=== PATIENT | female | born 1940 | race Caucasian/White ===

== ENCOUNTER 2017-12-29 09:54 | Outpatient (CLI) | payer MEDICARE, OTHER, SELFPAY ==
[2017-12-29 09:54] VITALS: BMI 22.1
[2017-12-29 10:20] VITALS: BP 122/78; PULSE 68; RESP 20; TEMP 36.9; O2SAT 96
[2017-12-29 10:38] LABS: Calcium 9.9 mg/dL (8.5-10.1)
[2017-12-29 10:40] VITALS: BP 122/78; PULSE 68; RESP 20; TEMP 36.9; O2SAT 96
== END 2017-12-29 10:40 | disposition home or self-care (01) ==
LOC: INF 09:54
PROVIDERS: Family Provider Internal Medicine; PCP Internal Medicine; Visit Provider Internal Medicine
DX: M81.0 Age-related osteoporosis without current pathological fracture (principal); K21.9 Gastro-esophageal reflux disease without esophagitis
CPT/HCPCS: 36415; 82310; 96372; J0897

== ENCOUNTER → 2020-07-19 08:30 | Outpatient (CLI) | payer MEDICARE, OTHER, SELFPAY ==
[2020-07-20 13:53] LABS: Covid-19 Nasal PCR Sendout Lex Not Detected
== END ==
PROVIDERS: Visit Provider Dermatology
DX: Z03.818 Encounter for observation for suspected exposure to other biological agents ruled out (principal)
CPT/HCPCS: U0004

== ENCOUNTER → 2020-07-26 14:19 | Outpatient (CLI) | payer MEDICARE, OTHER, SELFPAY ==
[2020-07-28 14:28] LABS: Covid-19 Nasal PCR Sendout Lex NOT DETECTED
== END ==
PROVIDERS: Visit Provider Dermatology
DX: Z01.818 Encounter for other preprocedural examination (principal)
CPT/HCPCS: U0004

== ENCOUNTER → 2020-09-26 10:57 | Outpatient (CLI) | payer MEDICARE, OTHER, SELFPAY ==
[2020-09-27 11:38] LABS: Covid-19 Nasal PCR Sendout P&C NEGATIVE
== END ==
PROVIDERS: Visit Provider Dermatology
DX: Z11.52 Encounter for screening for COVID-19 (principal)
CPT/HCPCS: U0004

== ENCOUNTER 2020-10-08 09:30 | Emergency (ER) | payer MEDICARE, OTHER, SELFPAY ==
[2020-10-08 09:31] VITALS: BP 187/108; PULSE 130; RESP 16; TEMP 36.8; O2SAT 97; BMI 21.2
--- NOTE | 2020-10-08 09:43 | ECG_ITS ---
APPROVED REPORT Exam: Resting ECG HR:162 bpm ECG Measurements Heart Rate 162 AXES LA 124 P 50 QRSd 72 QRS -1 QT 302 T 31 QTc 495 Conclusion Undetermined rhythm Septal infarct, age undetermined Lateral infarct, age undetermined ST & T wave abnormality, consider inferior ischemia Abnormal ECG Electronically signed by : Will Sanchez, 10/09/2020 07:09:24
--- NOTE | 2020-10-08 09:51 | XR_ITS ---
PROCEDURE: XR CHEST PORTABLE CLINICAL HISTORY: chest pain COMPARISON: No exams were available for comparison FINDINGS: The cardiomediastinal silhouette and pulmonary vascularity are within normal limits. The lungs are clear without infiltrates, suspicious nodules, or pleural effusions. There are surgical clips in the left axilla IMPRESSION: No acute findings. Dictated by: Regan Lancaster MD 10/08/2020 10:36 Regan Lancaster MD in [place] 10/08/2020 10:36
[2020-10-08 10:01] VITALS: BP 135/87; PULSE 106; O2SAT 98
--- NOTE | 2020-10-08 10:07 | HMH.EDARPALP ---
ED Disposition Clinical Impression: Palpitations Pulmonary contusion Qualifiers: Encounter type: initial encounter Laterality: unspecified laterality Qualified Code(s): S27.329A - Contusion of lung, unspecified, initial encounter Disposition: Home, Self-Care Condition on Discharge: Good Instructions: DI for Palpitations Referrals: Zo Higgins [Primary Care Provider] - Darren Pedroza MD [Staff Physician] - - Critical Care Critical Care Time: No Attestation: On 10/08/20, the high probability of a clinically significant, sudden or life threatening deterioration of the following system(s) required my full and direct attention, intervention and personal management. The time I documented below is in addition to time spent performing reported procedures but includes the following listed in this critical care notation. Medical Decision Making - Medical Records Medical records reviewed: Yes: I reviewed the patient's medical records. - Kirt Inquiry Pt receiving controlled substance: No Vital Signs: 10/08/20 09:31 Temperature 98.3 F Temperature Source Oral Pulse Rate [Right Brachial] 130 H Respiratory Rate 16 Blood Pressure [Right Arm] 187/108 H Blood Pressure Mean [Right Arm] 134 Blood Pressure Source [Right Arm] Automatic Cuff Blood Pressure Position [Right Arm] Sitting 02 Sat by Pulse Oximetry 97 Oxygen Delivery Method Room Air - Lab Data Lab Results 10/08/20 11:10: WBC 6.5, RBC 4.72, Hgb 13.5, Hct 40.7, MCV 86.1, MCH 28.5, MCHC 33.1, RDW 15.1, Plt Count 195, MPV 7.6, Neut % (Auto) 79.7, Lymph % (Auto) 12.7, [place] % (Auto) 4.9, Eos % (Auto) 2.2, Baso % (Auto) 0.5, Neut # (Auto) 5.2, Lymph # (Auto) 0.8, [place] # (Auto) 0.3, Eos # (Auto) 0.1, Baso # (Auto) 0.0 10/08/20 11:10: Sodium 140, Potassium 4.1, Chloride 105, Carbon Dioxide 27, Anion Gap 12.1, BUN 17, Creatinine 1.10 H, Estimated Creat Clear 34, Estimated GFR 48 L, Est GFR ( Amer) 58 L, Glucose 90, Calcium 10.1, Troponin I < 0.01 10/08/20 11:10: SARS-CoV-2 IgG Ab (Rapid) Negative, SARS-CoV-2 IgM Ab (Rapid) Negative 10/08/20 11:10: APTT 23.1 L 10/08/20 11:10: NT-Pro-B Natriuret Pep 117, TSH 3.15 10/08/20 11:10: PT 11.4, INR 1.03 Result diagrams: 10/08/20 11:10 10/08/20 11:10 Orders (Tests/Meds): ED MEDICATIONS Discontinued Medications Generic Name Dose Route Start Last Admin Trade Name Freq PRN Reason Stop Dose Admin Sodium Chloride 1,000 mls @ 999 mls/hr 10/08/20 10:15 10/08/20 11:25 Sod Chlor 0.9% 1000ml Bag IV 10/08/20 11:15 999 mls/hr .Q1H1M AZRA Administration Iopamidol 70 ml 10/08/20 12:16 10/08/20 12:17 Iopamidol-370 (76%);100ml Bottle IV 10/08/20 12:17 70 ml ONCE ONE Administration Sodium Chloride 10 ml 10/08/20 12:16 10/08/20 12:17 Sodium Chloride 0.9% 10ml Syr (Rad Only) IV 10/08/20 12:17 10 ml ONCE ONE Administration Sodium Chloride 50 ml 10/08/20 12:16 10/08/20 12:17 0.9 % Sodium Chloride 50 Ml Vial IV 10/08/20 12:17 50 ml ONCE ONE Administration ORDERS Category Date Time Status Troponin I Q3H Lab 10/08/20 13:00 Ordered Troponin I Q3H Lab 10/08/20 16:00 Ordered ECG Request by /Nse Stat Y 10/08/20 09:51 Ordered - Radiology Data #1 Image(s): Chest Image Reviewed: Yes I reviewed the patient's radiology results, Yes I reviewed the patient's radiology image, Yes I reviewed the patient's radiology image w/the ED provider Preliminary Findings: Normal/NAD, No Fracture Seen - CT Data CT Scan: Chest Time Received: 13:[address] Reviewed: Yes: I have reviewed the patient's CT results, I have viewed the radiologist's interpretation Findings Narrative: IMPRESSION: 1. No evidence of pulmonary embolus. 2. Mild mediastinal and axillary adenopathy. Small nodes are also present in the retrocrural region. - ECG Data Tracing #1 Tachycardic rate of 160 bpm, normal AL interval, normal QTC. Sinus tachycardia with nonspecific changes. ECG
--- NOTE | 2020-10-08 10:32 | PC.NURSE ---
Multiple attempts to place IV, unsuccessful.
--- NOTE | 2020-10-08 10:48 | PC.NURSE ---
lab notified of need for blood draw
--- NOTE | 2020-10-08 10:52 | CT_ITS ---
PROCEDURE: CT ANGIO CHEST CLINCIAL INDICATION: palpitations, chest pain Recent chest injury with pain COMPARISON: No exams were available for comparison TECHNIQUE: IV Contrast: 70ML Isovue 370 Axial images obtained with sagittal and coronal reformats. All CT scans at the facility use one or more dose reduction, viz: automated exposure control, ma/kV adjustment per patient size (including targeted exams where dose is matched to indication, i.e. head), or iterative reconstruction technique. FINDINGS: HEART AND MEDIASTINAL STRUCTURES: No evidence of pulmonary embolus, aortic aneurysm, or aortic dissection. There is some tortuosity an ectasia of the thoracic aorta with atheromatous changes. There are few scattered small mediastinal nodes. LUNGS AND PLEURAL SPACES: Mild atelectatic or fibrotic changes are present in the left lower lobe. No lobar consolidation or collapse is evident. There is some mild pleural thickening along the medial aspect of the left lower lobe adjacent to the descending thoracic aorta nonspecific. BONY STRUCTURES: No acute bony findings. Specifically, no evidence of sternal fracture. UPPER ABDOMEN: There is a medium-sized hiatal hernia. Few small lymph nodes are present in the periaortic region in the retrocrural area. The there is a 3 cm right renal cyst ADDITIONAL FINDINGS: Mildly prominent axillary nodes and left infraclavicular nodes present. IMPRESSION: 1. No evidence of pulmonary embolus. 2. Mild mediastinal and axillary adenopathy. Small nodes are also present in the retrocrural region. Dictated by: Regan Lancaster MD 10/08/2020 12:43 Regan Lancaster MD in [place] 10/08/2020 12:43
--- NOTE | 2020-10-08 10:54 | PC.NURSE ---
Multiple attempts at IV unsuccessful. Blood work delayed. Contacting [facility] for US guided IV at this time
--- NOTE | 2020-10-08 11:00 | PC.NURSE ---
[facility] RN here to place IV using ultrasound
[2020-10-08 11:01] VITALS: BP 133/82; PULSE 116; O2SAT 98
[2020-10-08 11:36] LABS: Chloride 105 mmol/L (98-107)
[2020-10-08 11:37] LABS: Potassium 4.1 mmoL/L (3.5-5.1); Sodium 140 mmol/L (136-145)
[2020-10-08 11:39] LABS: Blood Urea Nitrogen 17 mg/dl (7-17); Creatinine Clearance Estimated 34 mL/min (50-200); Estimated Glomerular Filt Rate 48 ml/min (>60); GFR (African American) 58 ML/MIN (>60)
[2020-10-08 11:40] LABS: Anion Gap 12.1 mEq/L (5-15); Basophils % 0.5 % (0.1-2.0); Calcium 10.1 mg/dl (8.4-10.2); Carbon Dioxide 27 mmol/L (22.0-30.0); Eosinophils # 0.1 K/mm3 (0.0-0.4); Eosinophils % 2.2 % (0.1-12.0); Glucose 90 mg/dl (74-100); Hematocrit 40.7 % (37.0-47.0); Hemoglobin 13.5 g/dL (12.2-16.2); Lymphocytes # 0.8 K/mm3 (0.7-4.5); Lymphocytes % 12.7 % (10-50); Mean Corpuscular HGB Conc 33.1 g/dL (31.8-35.4); Mean Corpuscular Hemoglobin 28.5 pg (27.0-31.2); Mean Corpuscular Volume 86.1 fl (81-99); Mean Platelet Volume 7.6 fl (7.4-10.4); Monocytes # 0.3 K/mm3 (0.1-1.0); Monocytes % 4.9 % (1.7-9.3); Neutrophils # 5.2 K/mm3 (1.8-7.8); Neutrophils % 79.7 % (37.0-80.0); Platelet Count 195 K/mm3 (142-424); Red Blood Count 4.72 M/mm3 (4.20-5.40); Red Cell Distribution Width 15.1 % (11.5-17.5); White Blood Count 6.5 K/mm3 (4.8-10.8)
[2020-10-08 11:50] LABS: Activated Partial Thrombo Time 23.1 seconds (23.6-34.0); INR 1.03 (0.9-1.1); NT Pro Brain Natriuretic Pep. 117 pg/mL (0-450); Prothrombin Time 11.4 seconds (9.4-11.8)
[2020-10-08 11:54] LABS: Troponin I < 0.01 ng/ml (0.00-0.034)
[2020-10-08 12:01] VITALS: BP 139/79; PULSE 102; O2SAT 96
[2020-10-08 12:11] LABS: Thyroid Stimulating Hormone 3.15 uIU/mL (0.465-4.68)
[2020-10-08 12:40] LABS: Coronavirus 19 IgG Antibody Negative (Negative); Coronavirus 19 IgM Antibody Negative (Negative)
[2020-10-08 13:01] VITALS: BP 142/71; PULSE 91; O2SAT 98
[2020-10-08 13:24] VITALS: BP 141/74; PULSE 85; RESP 16; TEMP 36.8; O2SAT 98
[2020-10-08 14:20] LABS: Troponin I < 0.01 ng/ml (0.00-0.034)
== END 2020-10-08 13:29 | disposition home or self-care (01) ==
PROVIDERS: Emergency Provider Emergency Medicine; PCP Internal Medicine
DX: S27.329A Contusion of lung, unspecified, initial encounter (principal); W01.0XXA Fall on same level from slipping, tripping and stumbling without subsequent striking against object, initial encounter; Y92.019 Unspecified place in single-family (private) house as the place of occurrence of the external cause; R00.2 Palpitations; R06.02 Shortness of breath; Z01.84 Encounter for antibody response examination
CPT/HCPCS: 36415; 71045; 71275; 80048; 83880; 84443; 84484; 85025; 85610; 85730; 86328; 93005; 96365; 99283; Q9967

== ENCOUNTER → 2020-10-16 11:56 | Outpatient (CLI) | payer MEDICARE, OTHER, SELFPAY | PROVIDERS: PCP Internal Medicine; Visit Provider Urology | DX: R00.2 Palpitations (principal) | CPT/HCPCS: 93270 ==

== ENCOUNTER → 2020-10-19 09:08 | Outpatient (CLI) | payer MEDICARE, OTHER, SELFPAY ==
--- NOTE | 2020-10-19 09:10 | CA_ITS ---
APPROVED REPORT EXAM: Comprehensive 2D, Doppler, and color-flow Echocardiogram [employer]: Leonora Schilling RT(R) Ht: 5 ft 3 in Wt: 120lbs BSA: 1.56 BP: 154/101 mmHg Indications: Palpitations, HTN 2D Dimensions LVOT 1.75 cm (M/F) 1.5-2.5 M-Mode Dimensions RVDd 2.84 cm (0.9-2.6) LA Diam 2.76 cm (1.9-4.0) LVDd 3.53 cm (3.5-5.7) Ao Diam 2.17 cm (2.0-3.7) LVDs 2.34 cm (3.5-5.7) IVSd 0.91 cm (0.6-1.1) PWd 0.81 cm (0.6-1.1) EF (Teich) 63.60% FS 33.70% EDV (Teich) 51.90 mL ESV (Teich) 18.90 mL LV Diastology E Decel Time 257.00 (160-240 msec) E/A Ratio 0.9 MED E' 4.40 (< 7 cm/sec) E'/MED E' Ratio 20.59 (>14) LAT E' 8.00 (<10 cm/sec) E/LAT E' Ratio 11.33 (>14) Mitral Valve MV E Max Hema. 91.00 (40-130 cm/s) MV A Velocity 107.00 (40-130 cm/s) E/A Ratio 0.84 MV Decel. Time 257.00 (160-240 ms) MV PHT 75.00 ms Tricuspid Valve TR P. Velocity 200.00 cm/s RAP Estimate 10.00 mmHg RVSP 25.90 mmHg Left Ventricle Mildly enlarged left atrium, normal left ventricular size, mild concentric left ventricular hypertrophy, visually estimated ejection fraction 55% with no regional wall motion abnormality, grade 1 diastolic dysfunction seen without tissue Doppler evidence of raise left atrial pressure. Right Ventricle Right atrium and right ventricle are normal size and contractility. Aortic Valve Aortic valve is minimally thickened and fibrosed, there is no aortic stenosis or aortic insufficiency. Mitral Valve Mitral valve is grossly normal, there is mild mitral regurgitation. Tricuspid Valve Tricuspid valve is grossly normal, there is mild tricuspid regurgitation, tricuspid regurgitation jet velocity is inadequate for calculation of the right ventricular systolic pressure. Pulmonic Valve Pulmonic valve is poorly visualized. Great Vessels Aortic root is normal size. Pericardium No significant pericardial effusion noted. Conclusion 1. Mildly enlarged left atrium, normal left ventricular size, mild concentric left ventricular hypertrophy, visually estimated ejection fraction 55% with no regional wall motion abnormality, grade 1 diastolic dysfunction seen without tissue Doppler evidence of raise left atrial pressure. 2. Mild mitral and tricuspid regurgitation. 3. No significant pericardial effusion noted. Electronically signed by : Sha Reyes, 10/19/2020 14:44:56
== END ==
PROVIDERS: PCP Internal Medicine; Visit Provider Urology
DX: R00.2 Palpitations (principal)
CPT/HCPCS: 93306

== ENCOUNTER → 2022-01-08 09:05 | Outpatient (CLI) | payer MEDICARE, OTHER, SELFPAY ==
[2022-01-08 10:01] LABS: Basophils % 0.8 % (0.1-2.0); Eosinophils # 0.7 K/mm3 (0.0-0.4); Eosinophils % 13.4 % (0.1-12.0); Hemoglobin 12.8 g/dL (12.2-16.2); Lymphocytes # 1.2 K/mm3 (0.7-4.5); Mean Corpuscular HGB Conc 31.4 g/dL (31.8-35.4); Mean Corpuscular Hemoglobin 27.6 pg (27.0-31.2); Mean Platelet Volume 7.7 fl (7.4-10.4); Monocytes # 0.3 K/mm3 (0.1-1.0); Monocytes % 5.1 % (1.7-9.3); Neutrophils # 3.3 K/mm3 (1.8-7.8); Neutrophils % 59.7 % (37.0-80.0); Platelet Count 200 K/mm3 (142-424); Red Blood Count 4.65 M/mm3 (4.20-5.40); Red Cell Distribution Width 13.8 % (11.5-17.5); White Blood Count 5.5 K/mm3 (4.8-10.8)
[2022-01-08 10:45] LABS: Alanine Aminotransferase 19 U/L (12-78); Albumin Level 4.3 g/dl (3.5-5.0); Albumin/Globulin Ratio 1.3 (1.1-1.8); Alkaline Phosphatase 99 U/L (38-126); Anion Gap 10.1 mEq/L (5-15); Aspartate Amino Transferase 26 U/L (14-36); Bilirubin,Total 0.6 mg/dl (0.2-1.3); Blood Urea Nitrogen 12 mg/dl (7-17); Calcium 9.6 mg/dl (8.4-10.2); Carbon Dioxide 27 mmol/L (22.0-30.0); Chloride 106 mmol/L (98-107); Chol/HDL Ratio 5.5 (1-3.5); Cholesterol 155 mg/dl (140-200); Estimated Glomerular Filt Rate 69 ml/min (>60); GFR (African American) 83 ML/MIN (>60); Globulin 3.3 g/dL (1.3-3.2); Glucose 86 mg/dl (74-100); HDL Cholesterol 28 mg/dl (40-60); Magnesium 1.3 mg/dl (1.6-2.3); Potassium 4.1 mmoL/L (3.5-5.1); Sodium 139 mmol/L (136-145); Total Protein,Serum 7.6 g/dl (6.3-8.2); Triglycerides 141 mg/dl (30-150); VLDL Cholesterol 28 mg/dL (0-40)
[2022-01-08 10:47] LABS: Alanine Aminotransferase 16 U/L (12-78); Albumin Level 3.8 g/dl (3.5-5.0); Alkaline Phosphatase 87 U/L (38-126); Aspartate Amino Transferase 22 U/L (14-36); Bilirubin,Direct 0.2 mg/dl (0.0-0.4); Bilirubin,Indirect 0.3 mg/dL (0.0-0.9); Bilirubin,Total 0.5 mg/dl (0.2-1.3); Bilirubin,Unconjugated 0.3 mg/dL (0.0-1.1); Total Protein,Serum 6.8 g/dl (6.3-8.2)
[2022-01-08 10:57] LABS: Direct LDL Cholesterol 87.76 mg/dL (100-129)
[2022-01-08 11:00] LABS: Free T4 (Free Thyroxine) 0.98 ng/dl (0.78-2.19)
[2022-01-08 11:04] LABS: 25-OH Vitamin D, Total 34.4 ng/mL (30-100)
[2022-01-08 11:52] LABS: Vitamin B12 599 pg/mL (239-931)
[2022-01-08 13:46] LABS: Thyroid Stimulating Hormone 2.71 uIU/mL (0.465-4.68)
== END ==
PROVIDERS: Physician Assistant; PCP Internal Medicine; Visit Provider Internal Medicine
DX: I10 Essential (primary) hypertension (principal); E78.00 Pure hypercholesterolemia, unspecified; E55.9 Vitamin D deficiency, unspecified; E53.8 Deficiency of other specified B group vitamins
CPT/HCPCS: 36415; 80053; 80061; 80076; 82306; 82607; 82746; 83735; 84439; 84443; 85025

== ENCOUNTER → 2022-01-10 12:47 | Outpatient (CLI) | payer MEDICARE, OTHER, SELFPAY ==
--- NOTE | 2022-01-10 12:50 | CA_ITS ---
FINAL REPORT TECHNIQUE: Color Doppler, duplex Doppler and so scale sonography of the bilateral neck arterial vasculature was performed. Velocities were measured in the carotid arteries. Stenosis evaluation based on the validated velocity criteria. CLINICAL HISTORY: dizziness FINDINGS: The peak systolic velocity of the right common carotid artery is 72 cm/s. The peak systolic velocity of the right internal carotid artery is 65 cm/s and end diastolic velocity 13 cm/s. The ICA/CCA ratio is 0.9. A mild amount of plaque is present. The right external carotid artery is patent. The right vertebral artery is patent with antegrade flow. The peak systolic velocity of the left common carotid artery is 58 cm/s. The peak systolic velocity of the left internal carotid artery is 60 cm/s and end diastolic velocity 22 cm/s. The ICA/CCA ratio is 1.2. A mild amount of plaque is present. The left external carotid artery is patent.The left vertebral artery is patent with antegrade flow. IMPRESSION: Less than 50% bilateral carotid stenosis. Bilateral patent vertebral arteries with antegrade flow. Reviewed, Interpreted and Dictated by Jayme Lacey MD Transcribed by Tammy Valenzuela Authenticated by Jayme Lacey MD on 01/10/2022 03:05:[address] [facility]
== END ==
PROVIDERS: PCP Internal Medicine; Visit Provider Physician Assistant
DX: I10 Essential (primary) hypertension (principal); R00.2 Palpitations; R42 Dizziness and giddiness
CPT/HCPCS: 93880

== ENCOUNTER 2024-01-25 09:12 | Outpatient (CLI) | payer MEDICARE, OTHER, SELFPAY | END 2024-01-25 23:59 | disposition home or self-care (01) | LOC: RT 09:12 | PROVIDERS: PCP Internal Medicine; Visit Provider Nurse Practitioner | DX: R00.2 Palpitations (principal); R60.9 Edema, unspecified; I49.3 Ventricular premature depolarization; E78.5 Hyperlipidemia, unspecified; I10 Essential (primary) hypertension; Z87.891 Personal history of nicotine dependence | CPT/HCPCS: 93270 ==

== ENCOUNTER 2024-02-02 10:08 | Outpatient (CLI) | payer MEDICARE, OTHER, SELFPAY ==
--- NOTE | 2024-02-02 10:08 | CA_ITS ---
APPROVED REPORT EXAM: Comprehensive 2D, Doppler, and color-flow Echocardiogram [employer]: Danelle Espinoza CRT Ht: 5 ft 3 in Wt: 114lbs BSA: 1.52 BP: 116/71 mmHg Indications: Palpitations, Hyperlipidemia, Hypertension/HDD 2D Dimensions LA Volume 31.60 mL LA Volume Index 20.79 mL/m2 (M/F) 16-34 M-Mode Dimensions RVDd 2.86 cm (0.9-2.6) LA Diam 3.32 cm (1.9-4.0) LVDd 2.95 cm (3.5-5.7) LVDs 1.83 cm (3.5-5.7) IVSd 1.90 cm (0.6-1.1) PWd 0.56 cm (0.6-1.1) EF (Teich) 69.90% FS 38.00% EDV (Teich) 33.60 mL TAPSE 1.87 (<1.7) ESV (Teich) 10.10 mL LV Diastology E Decel Time 308 (160-240 msec) E/A Ratio 0.7 MED A' 12.60 cm/s LAT A' 13.20 cm/s Aortic Valve AO Peak GR. 11.40 mmHg Mitral Valve MV E Max Hema. 85.0 (40-130 cm/s) MV A Velocity 118.0 (40-130 cm/s) E/A Ratio 0.72 MV PHT 90.0 ms Pulmonary Valve PV Peak Velocity 163.0 (50-150 cm/s) Tricuspid Valve TR P. Velocity 290.00 cm/s RAP Estimate 10.00 mmHg RVSP 43.50 mmHg Left Ventricle The left ventricle is normal size. The left ventricular systolic function is normal. The left ventricular ejection fraction is within the normal range. There is increased LV wall thickness. There is normal LV segmental wall motion. Diastolic function is indeterminate. LVEF is 60%. Right Ventricle The right ventricle is normal size. The right ventricular systolic function is normal. Atria Left atrium is mildly dilated. Right atrium is mildly dilated. There is no Doppler evidence of interatrial shunt. Aortic Valve The aortic valve is mildly thickened. There is no aortic valvular stenosis. Trace aortic regurgitation. Mitral Valve The mitral valve leaflets are mildly thickened. No evidence of mitral valve stenosis. Trace mitral regurgitation. Tricuspid Valve The tricuspid valve leaflets are thin and pliable. Mild tricuspid regurgitation. RVSP is 25-30 mmHg. Pulmonic Valve The pulmonary valve is normal in structure. Trace pulmonic regurgitation. Great Vessels The aortic root is normal in size. The ascending aorta is not well-visualized. IVC is normal in size and collapses >50% with inspiration. Pericardium There is no pericardial effusion. Other Information Study Quality: Fair Conclusion Normal biventricular systolic function. Mild biatrial dilation. Mild TR. RVSP 25-30 mmHg. Electronically signed by : Solange Eric MD 02/02/2024 13:49:30
== END 2024-02-02 23:59 | disposition home or self-care (01) ==
LOC: RT 10:08
PROVIDERS: PCP Internal Medicine; Visit Provider Nurse Practitioner
DX: E78.5 Hyperlipidemia, unspecified (principal); I49.3 Ventricular premature depolarization; R00.2 Palpitations; I10 Essential (primary) hypertension; Z87.891 Personal history of nicotine dependence
CPT/HCPCS: 93306

== ENCOUNTER 2024-03-21 17:02 | Emergency (ER) | payer MEDICARE, OTHER, SELFPAY ==
[2024-03-21 17:03] VITALS: BP 145/87; PULSE 88; RESP 16; TEMP 36.7; O2SAT 95; BMI 20.2
[2024-03-21 17:31] VITALS: BP 145/87; PULSE 89; O2SAT 97
--- NOTE | 2024-03-21 17:45 | ED_ITS ---
<Statement entered by Pradeep Manuel MD - 03/21/24 18:53> I was consulted by the PENNY, and we discussed the complexity of the problems being addressed. I approved the treatment and management plan for this patient's care in the emergency department, thus performing a substantive portion of the medical decision making. Pradeep Manuel MD Discharge Plan Disposition Patient Disposition: Home, Self-Care Condition: Good Prescriptions Prescriptions: New doxycycline hyclate 100 mg capsule 100 mg PO BID 10 Days Qty: 20 0RF No Action cholecalciferol (vitamin D3) 1,250 mcg (50,000 unit) capsule 1,250 mcg PO WEEKLY Patient Comments: TAKE 1 CAPSULE BY MOUTH ONCE A WEEK cyanocobalamin (vitamin B-12) 1,000 mcg/mL solution 1,000 mcg SQ Q2W metoprolol succinate [Toprol XL] 25 mg tablet extended release 24 hr 25 mg PO DAILY Qty: 90 3RF aspirin [Adult Low Dose Aspirin] 81 mg tablet,delayed release (DR/EC) 81 mg PO DAILY omeprazole 20 mg capsule,delayed release(DR/EC) 20 mg PO DAILY magnesium 200 mg tablet 200 mg PO BID vitamin B complex [B Complex-Vitamin B12] Tablet 1 tab PO DAILY amlodipine 5 MG tablet 5 mg PO DAILY spironolactone 50 MG tablet 50 mg PO DAILY Referrals Follow up/Referrals: Zo Higgins MD [Primary Care Provider] - See instructions Activity Restrictions/Add. Instructions Additional Instructions/Restrictions: Follow-up with your PCP within 48 hours. Return to ER for worsening signs or symptoms. Clinical Impressions Clinical Impression: Ascending lymphangitis Instructions Patient Instructions: DI for Cellulitis -- Adult Discharge ED Provider: Pradeep Manuel General Adult HPI General Chief complaint: Extremity Problem,Nontraumatic Stated complaint: possible insect bite on right leg Time Seen by Provider: 03/21/24 17:32 Mode of Arrival: Ambulatory Source of Information: Patient Limitations: No Limitations Description of Symptoms (Recalled from ER Triage Doc. by RN): Patient reports being bit by some type of insect causing redness and swelling in her right lower leg. States this happened last night. History of Present Illness HPI narrative: Patient presents for evaluation of redness pain and swelling of her right lower extremity. Patient believes she was bit by a chigger last evening. She reports it is very itchy however she noticed redness starting to spread up her leg from it. She denies fever chest pain shortness of breath chills hemoptysis hematochezia melena nausea vomit diarrhea. Related Data Home Medications Medication Instructions Recorded Confirmed amlodipine 5 mg tablet 5 mg PO DAILY HTN 10/08/20 02/29/24 spironolactone 50 mg tablet 50 mg PO DAILY Fluid 10/08/20 02/29/24 aspirin 81 mg tablet,delayed 81 mg PO DAILY 10/16/20 02/29/24 release (Adult Low Dose Aspirin) omeprazole 20 mg capsule,delayed 20 mg PO DAILY 11/13/20 02/29/24 release vitamin B complex (B 1 tab PO DAILY 08/21/21 02/29/24 Complex-Vitamin B12 tablet) cholecalciferol (vitamin D3) 1,250 1,250 mcg PO WEEKLY 07/09/22 02/29/24 mcg (50,000 unit) capsule cyanocobalamin (vitamin B-12) 1,000 mcg SQ Q2W 01/08/23 02/29/24 1,000 mcg/mL injection solution magnesium 200 mg tablet 200 mg PO BID 01/08/23 02/29/24 Previous Rx's Medication Instructions Recorded metoprolol succinate 25 mg 25 mg PO DAILY #90 tabs 02/29/24 tablet,extended release 24 hr (Toprol XL) doxycycline hyclate 100 mg capsule 100 mg PO BID 10 days #20 caps 03/21/24 Allergies Allergy/AdvReac Type Severity Reaction Status Date / Time Sulfa (Sulfonamide Allergy Intermediate RASH, Verified 02/29/24 13:44 Antibiotics) ITCHING codeine AdvReac Severe SEVERE Verified 02/29/24 13:44 VOMITING [facility] Disclaimer: The information contained in this section may have been updated after the patient was seen, as this information can be updated by other users. Medical History Encounter for pre-operative cardiovascular clearance Social History Smoking Status: Unknown if ever smoked alcohol intake: never current occupational status: retired Travel in the last 8 weeks: Inside the [facility] housing: house ROS Obtained: Yes Systems reviewed as appropriate & no additional complaints except as documented Physical Exam General General appearance: alert and in no apparent distress Respiratory Respiratory exam: Present normal lung sounds bilaterally Cardiovascular Cardiovascular exam: Present regular rate and normal rhythm Neurological Exam Neurological exam: Present alert and oriented X3 Expanded Skin Exam Body image: 2 1. Meningitis 2. Bug bite 3. Lymphangitis Medical Decision Making Medical Records Medical records reviewed: Yes I reviewed the patient's medical records. Kirt Inquiry Pt receiving controlled substance: No Vital Signs: 03/21/24 17:03 03/21/24 17:31 03/21/24 18:00 Temperature 98.0 F Temperature Source Oral Pulse Rate 89 80 Pulse Rate [Radial] 88 Respiratory Rate 16 Blood Pressure 145/87 H 173/89 H Blood Pressure [Right Arm] 145/87 H Blood Pressure Mean 104 Blood Pressure Mean [Right Arm] 106 Blood Pressure Source [Right Arm] Automatic Cuff Blood Pressure Position [Right Arm] Sitting 02 Sat by Pulse Oximetry 95 97 96 Oxygen Delivery Method Room Air Room Air Room Air Lab Data Lab results reviewed: Yes I reviewed the patient's lab results. Lab Results 03/21/24 17:50: WBC 5.1, RBC 4.35, Hgb 12.8, Hct 38.4, MCV 88.4, MCH 29.5, MCHC 33.4, RDW 15.6, Plt Count 152, MPV 8.6, Neut % (Auto) 70.3, Lymph % (Auto) 18.8, [place] % (Auto) 5.6, Eos % (Auto) 4.7, Baso % (Auto) 0.6, Neut # (Auto) 3.6, Lymph # (Auto) 1.0, [place] # (Auto) 0.3, Eos # (Auto) 0.2, Baso # (Auto) 0.0, Sodium 138, Potassium 4.7, Chloride 109 H, Carbon Dioxide 23, Anion Gap 10.7, BUN 17, Creatinine 0.90, Estimated Creat Clear 34, Estimated GFR 60, Est GFR ( Amer) 72, Glucose 89, Calcium 9.6 03/21/24 17:50 03/21/24 17:50 Orders (Tests/Meds): ED MEDICATIONS Discontinued Medications Generic Name Dose Route Start Last Admin Trade Name Freq PRN Reason Stop Dose Admin Acetaminophen 1,000 mg 03/21/24 17:38 03/21/24 17:55 Acetaminophen 1,000mg/100ml Vial IV 03/21/24 17:39 1,000 mg ONCE ONE Administration Dexamethasone Sodium Phosphate 10 mg 03/21/24 17:38 03/21/24 17:57 Dexamethasone 4mg/Ml 5ml Mdv IV 03/21/24 17:39 10 mg ONCE ONE Administration Diphenhydramine HCl 50 mg 03/21/24 17:38 03/21/24 17:55 Diphenhydramine 50mg/Ml Vial IV 03/21/24 17:39 50 mg ONCE ONE Administration Doxycycline Hyclate 100 mg 03/21/24 17:51 03/21/24 18:14 Doxycycline Hycl 100 Mg Tablet PO 03/21/24 17:52 100 mg ONCE ONE Administration ORDERS Category Date Time Status BMP [Basic Metabolic Panel] Stat Lab 03/21/24 17:50 Completed CBC w/Auto Diff [Complete Blood Count Auto Diff] Stat Lab 03/21/24 17:50 Completed Medical Decision Narrative: In summary patient is a 83-year-old female who presents to the emergency department for evaluation of bug bite and redness. Patient is hemodynamically stable upon arrival, afebrile. Physical exam is remarkable for an area in the popliteal fossa that is excoriated with a good scab over it slightly raised but no fluctuance with spreading erythema tracking up her anterior leg along the lymph channels. Differential diagnosis includes pharyngitis versus cellulitis versus abscess etc. Initial workup will be conducted with hematologic labs. Initial interventions include doxycycline Benadryl Decadron. Initial workup reviewed by oh hematologic labs are nonactionable. Upon repeat evaluation had no spread after administration of initial medication. Given this patient is appropriate for discharge with prescription sent in for doxycycline prednisone Critical Care Critical Care Time Critical Care Time: No
[2024-03-21] MEDS: ACETAMINOPHEN 1,000MG/100ML VIAL 1000 MG IV (17:55)
[2024-03-21] MEDS: diphenhydrAMINE 50MG/ML VIAL 50 MG IV (17:55)
[2024-03-21] MEDS: DEXAMETHASONE 4MG/ML 5ML MDV 10 MG IV (17:57)
[2024-03-21 18:00] VITALS: BP 173/89; PULSE 80; O2SAT 96
[2024-03-21 18:06] LABS: Basophils % 0.6 % (0.1-2.0); Eosinophils # 0.2 K/mm3 (0.0-0.4); Eosinophils % 4.7 % (0.1-12.0); Hematocrit 38.4 % (37.0-47.0); Hemoglobin 12.8 g/dL (12.2-16.2); Lymphocytes % 18.8 % (10-50); Mean Corpuscular HGB Conc 33.4 g/dL (31.8-35.4); Mean Corpuscular Hemoglobin 29.5 pg (27.0-31.2); Mean Corpuscular Volume 88.4 fl (81-99); Mean Platelet Volume 8.6 fl (7.4-10.4); Monocytes # 0.3 K/mm3 (0.1-1.0); Monocytes % 5.6 % (1.7-9.3); Neutrophils # 3.6 K/mm3 (1.8-7.8); Neutrophils % 70.3 % (37.0-80.0); Platelet Count 152 K/mm3 (142-424); Red Blood Count 4.35 M/mm3 (4.20-5.40); Red Cell Distribution Width 15.6 % (11.5-17.5); White Blood Count 5.1 K/mm3 (4.8-10.8)
[2024-03-21 18:09] LABS: Chloride 109 mmol/L (98-107)
[2024-03-21 18:10] LABS: Potassium 4.7 mmoL/L (3.5-5.1); Sodium 138 mmol/L (136-145)
[2024-03-21 18:13] LABS: Anion Gap 10.7 mEq/L (5-15); Blood Urea Nitrogen 17 mg/dl (7-17); Calcium 9.6 mg/dl (8.4-10.2); Carbon Dioxide 23 mmol/L (22.0-30.0); Creatinine Clearance Estimated 34 mL/min (50-200); Estimated Glomerular Filt Rate 60 ml/min (>60); GFR (African American) 72 ML/MIN (>60); Glucose 89 mg/dl (74-100)
[2024-03-21] MEDS: DOXYCYCLINE HYCL 100 MG TABLET PO (18:14)
[2024-03-21 18:40] VITALS: BP 145/88; PULSE 80; RESP 16; TEMP 36.7; O2SAT 96
== END 2024-03-21 18:42 | disposition home or self-care (01) ==
PROVIDERS: Physician Assistant; Emergency Provider Emergency Medicine; PCP Internal Medicine
DX: I89.1 Lymphangitis (principal); S80.861A Insect bite (nonvenomous), right lower leg, initial encounter; L29.9 Pruritus, unspecified; W57.XXXA Bitten or stung by nonvenomous insect and other nonvenomous arthropods, initial encounter
CPT/HCPCS: 80048; 85025; 96374; 96375; 99284; 99285; J0131

== ENCOUNTER 2024-06-06 08:18 | Outpatient (CLI) | payer MEDICARE, OTHER, SELFPAY ==
--- NOTE | 2024-06-06 08:19 | CT_ITS ---
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 A noncontrast coronary calcium scan was performed. A CT attenuation threshold of 130 Hounsfield units (HU) was used for the detection of calcium in contiguous voxels of 1 sq mm in area to be counted as individual lesions. Bolus tracking in the ascending aorta with a threshold of 180 HU was performed. Immediately afterwards, ECG synchronized cardiac CT was then performed from the cardiac base to apex using retrospective gating with ECG tube current modulation. A total of 85 mL of Isovue 370 mg/mL contrast medium was administered at 5 mL/sec followed by a saline flush using a biphasic injection protocol. A tube voltage of 120 KVp was used. The patient received the following medications prior to the cardiac CT. 25 mg of oral metoprolol 15 mg of oral ivabradine 0.4 mg of sublingual nitroglycerin The average heart rate at the time of acquisition was 61 bpm and regular. Image Reconstruction Transaxial images were reconstructed at 0.67 mm slide thickness. Data was reviewed interactively on an advanced workstation capable of 2 and 3-dimensional displays in all conventional reconstruction formats, including multiplanar reformations, maximum intensity projections, curved multiplanar reformations, and volume rendered reconstructions. When applicable, selected routine images describing the relevant coronary anatomy and pathology were saved and sent to PACS. Complications None Technical Quality Overall image quality was good. Coronary artery opacification was adequate. Total DLP (Dose-Length Product) is 1178.5 mGy-cm. The reported value represents the total of one or more individual components during the CT acquisition of this date and at this time, and as such, the same value may appear in more than one CT report depending on the interpreting/reporting physicians. COMPARISON None FINDINGS CT Coronary Calcium Scoring LMA (Left Main Artery) = 0 LAD (Left Anterior Descending) = 53 LCX (Left Coronary Circumflex) = 16 RCA (Right Coronary Artery) = 0 Total Calcium Score = 69 using the AJ-130 method. The observed calcium score of 69 is at 32nd percentile for subjects of the same age, sex, and race/ethnicity. The interpretation of the calcium heart score is based on the following continuum*: 0 = no calcified plaque detected (risk of coronary artery disease is very low ??? less than 5%) 1-10 = calcium detected in extremely minimal levels (risk of coronary diseases is still low ??? less than 10%) 11-100 = mild levels of plaque detected with certainty (mild or minimal narrowing of heart arteries is likely) 101-400 = definite,at least moderate levels of plaque detected (relatively high risk of a heart attack within 3-5 years) >401-999 = extensive levels of plaque detected (high risk of heart attack, high levels of vascular disease are present, high likelihood of at least one significant coronary narrowing) *The calcium heart score quantifies the burden of coronary calcification/plaque in the coronary arteries. The calcium heart score is not able to evaluate the presence or burden of non-calcified (i.e. soft) plaque. There is also identifiable calcification in the aortic valve Coronary CT Angiography The coronary arterial system is left dominant. Quantitative Stenosis Grading: Left Main (LM): The left main originates normally from the left sinus of Valsalva. The LM bifurcates into the left anterior descending artery and left circumflex artery. The LM is patent with no evidence of atherosclerosis. Left Anterior Descending (LAD) and Diagonal Branches: The LAD gives off 3 diagonal branch(es). There is mixed calcified/noncalcified plaque noted in the proximal LAD segment with up to 30% luminal stenosis. There is also noncalcified plaque noted at the takeoff of the first diagonal branch, with up to 25-50% luminal stenosis. There is no evidence of LAD-myocardial bridge. Left Circumflex (LCX) and Obtuse Marginals (OM): The LCX gives off 2 Obtuse Marginal (OM) branch(es). There is mixed calcified/noncalcified plaque in the proximal LCx segment, with up to 30% luminal stenosis. Right Coronary Artery (RCA): The RCA originates normally from the right sinus of Valsalva. The RCA is a small caliber vessel. The RCA and its branches are patent with no evidence of atherosclerosis. Non-Coronary Cardiac Findings: Analysis of the left ventricular (LV) structure and function was performed after 3-D reconstruction of the LV from axial images, with user-corrected automatic contouring for assessment of LV volumes and user-defined reconstruction from oblique planes for measurement of 3-D cardiac structure and function. -The left ventricle systolic function is normal. -There is no left atrial appendage filling defect. Two right pulmonary veins and two left pulmonary veins drain normally into the left atrium. -No pericardial thickening or calcification. -Central and branch pulmonary arteries in the [id number] are unremarkable. -Thoracic aorta within the visualized thoracic aortic-branches in the [id number] is unremarkable. Extracardiac Structures -Hiatal hernia is incidentally noted. IMPRESSION -Presence of coronary calcification with an Agatston score = 69 using the AJ-130 method. -The observed calcium score of 69 is at 32nd percentile for subjects of the same age, sex, and race/ethnicity. -Mild, non-obstructive atherosclerotic disease in the LAD/first diagonal branch, with no evidence of significant flow-limiting atherosclerosis. -CAD-RADS 2. Management recommendations per ACC/AHA guidelines*, as clinically appropriate. -Mild calcification of the aortic valve. -Hiatal hernia is incidentally noted. *Recommendations: CAD RADS 0: Reassurance. Consider non-atherosclerotic causes of chest pain. CAD RADS 1: Consider non-atherosclerotic causes of chest pain. Consider preventive therapy and risk factor modification. CAD RADS 2: Consider non-atherosclerotic causes of chest pain. Consider preventive therapy and risk factor modification, particularly for patients with nonobstructive plaque in multiple segments. CAD RADS 3: Consider further functional testing. Consider symptom-guided anti-ischemic and preventive pharmacotherapy as well as risk factor modification per published guideline statements. CAD RADS 4A: Consider further functional testing or invasive coronary angiography with revascularization per published guideline statements. Consider symptom-guided anti-ischemic and preventive pharmacotherapy as well as risk factor modification per published guideline statements. CAD RADS 4B: Invasive coronary angiography recommended with revascularization per published guideline statements. Consider symptom-guided anti-ischemic and preventive pharmacotherapy as well as risk factor modification per published guideline statements. CAD RADS 5: Consider invasive angiography and/or viability assessment with revascularization per published guideline statements. Consider symptom-guided anti-ischemic and preventive pharmacotherapy as well as risk factor modification per published guideline statements. CRITICAL RESULT None COMMUNICATION Per this written report The coronary and cardiac findings of this CCTA were reviewed, reported, and signed by Jose Eric MD (Environmental Advisor) Conclusion Electronically signed by : Solange Eric MD 06/07/2024 14:06:57
[2024-06-06 08:46] VITALS: BMI 19.5
[2024-06-06 08:53] VITALS: BP 138/79; PULSE 75; RESP 18; TEMP 36.6; O2SAT 99
[2024-06-06] MEDS: METOPROLOL TARTRATE 25MG TABLET 25 MG (10:02)
[2024-06-06] MEDS: IVABRADINE HCL 7.5MG TABLET PO (10:02)
[2024-06-06 10:10] VITALS: BP 103/50; PULSE 60; RESP 18; O2SAT 95
[2024-06-06 10:40] LABS: Anion Gap 9.9 mEq/L (5-15); Blood Urea Nitrogen 15 mg/dl (7-17); Calcium 9.5 mg/dl (8.4-10.2); Carbon Dioxide 23 mmol/L (22.0-30.0); Chloride 108 mmol/L (98-107); Creatinine Clearance Estimated 32 mL/min (50-200); Estimated Glomerular Filt Rate 68 ml/min (>60); GFR (African American) 82 ML/MIN (>60); Glucose 79 mg/dl (74-100); Potassium 3.9 mmoL/L (3.5-5.1); Sodium 137 mmol/L (136-145)
[2024-06-06 11:00] VITALS: BP 126/73; PULSE 59; RESP 18; O2SAT 97
[2024-06-06 11:05] VITALS: BP 100/61; PULSE 66; RESP 18; O2SAT 96
[2024-06-06] MEDS: 0.9 % SODIUM CHLORIDE 50 ML VIAL IV (11:13)
[2024-06-06] MEDS: IOPAMIDOL-370 (76%);100ML BOTTLE 85 ML IV (11:13)
[2024-06-06] MEDS: SODIUM CHLORIDE 0.9% 10ML SYR (RAD ONLY) 10 ML IV (11:14)
[2024-06-06 11:15] VITALS: BP 110/57; PULSE 65; RESP 18; O2SAT 98
[2024-06-06] MEDS: NITROGLYCERIN 0.4MG SL TABLET SL (11:52)
== END 2024-06-06 11:15 | disposition home or self-care (01) ==
PROVIDERS: PCP Internal Medicine; Visit Provider Nurse Practitioner Family
DX: R07.89 Other chest pain (principal); R93.1 Abnormal findings on diagnostic imaging of heart and coronary circulation; E78.5 Hyperlipidemia, unspecified; I49.3 Ventricular premature depolarization; R00.2 Palpitations; I10 Essential (primary) hypertension
CPT/HCPCS: 75574; 80048; Q9967

== ENCOUNTER 2024-06-28 08:56 | Outpatient (CLI) | payer MEDICARE, OTHER, SELFPAY ==
[2024-06-28 09:36] LABS: Basophils % 0.7 % (0.1-2.0); Eosinophils # 0.2 K/mm3 (0.0-0.4); Eosinophils % 4.7 % (0.1-12.0); Hematocrit 40.9 % (37.0-47.0); Hemoglobin 13.9 g/dL (12.2-16.2); Lymphocytes # 1.1 K/mm3 (0.7-4.5); Lymphocytes % 20.7 % (10-50); Mean Corpuscular Hemoglobin 29.7 pg (27.0-31.2); Mean Corpuscular Volume 87.3 fl (81-99); Mean Platelet Volume 7.3 fl (7.4-10.4); Monocytes # 0.3 K/mm3 (0.1-1.0); Monocytes % 6.4 % (1.7-9.3); Neutrophils # 3.5 K/mm3 (1.8-7.8); Neutrophils % 67.5 % (37.0-80.0); Platelet Count 137 K/mm3 (142-424); Red Blood Count 4.68 M/mm3 (4.20-5.40); Red Cell Distribution Width 14.9 % (11.5-17.5); White Blood Count 5.1 K/mm3 (4.8-10.8)
[2024-06-28 10:04] LABS: Magnesium 1.6 mg/dl (1.6-2.3)
== END 2024-06-28 23:59 | disposition home or self-care (01) ==
PROVIDERS: PCP Internal Medicine; Visit Provider Internal Medicine
DX: E83.42 Hypomagnesemia (principal); D69.6 Thrombocytopenia, unspecified
CPT/HCPCS: 36415; 83735; 85025

== ENCOUNTER 2024-07-05 09:03 | Outpatient (CLI) | payer MEDICARE, OTHER, SELFPAY ==
--- NOTE | 2024-07-05 09:06 | XR_ITS ---
FINAL REPORT CLINICAL HISTORY: screening FINDINGS: Using L1-4, the bone mineral density of the spine is 0.829 g/cm2, corresponding to T-score of -2.0. Using the right hip, the bone mineral density is 0.626 g/cm2, corresponding to a T-score of -2.6. Using the distal third, the bone mineral density of the left forearm is 0.526 g/cm2, corresponding to a T-score of -2.8. 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 Osteoporotic bone mineral density of the right hip and left forearm. NOTE: T-score: Standard deviation compared with peak bone mass of young adult mean. *Following the recommendations of the International Society of Bone densitometry, classification of hip BMD is based on the lower of two T-scores; total hip or femoral neck. Reviewed, Interpreted and Dictated by Jayme Lacey MD Transcribed by Rosemary Smith Authenticated and [facility][1]
--- NOTE | 2024-07-05 09:06 | MM_ITS ---
PROCEDURE INFORMATION: Exam: Bilateral Screening 3D Mammography Exam date and time: 07/05/2024 9:07 AM Age: 83 years old Clinical indication: Screening examination TECHNIQUE: Imaging protocol: Bilateral Screening tomosynthesis and 2D mammography including computer-aided detection (CAD) when performed. COMPARISON: Mammo Screening (3D) BILATERAL 07/31/2022 11:50 AM FINDINGS: MAMMOGRAPHY: Breast composition: The breasts are heterogeneously dense, which may obscure small masses. Mass: None. Architectural distortion: None. Calcifications: No suspicious calcifications. Asymmetric density: There is a glandular asymmetry on the MLO view of the left breast in the left axillary tail region, posterosuperior aspect measuring 4.4 cm. Skin thickening: None. Axillary adenopathy: None. IMPRESSION: Patient to be recalled for spot compression views of the left breast in the MLO projections, a full 90 degree lateral view, and left breast ultrasound for further evaluation of a left breast asymmetry seen on the MLO view only. ASSESSMENT: BI-RADS Category 0: Incomplete- Need Additional Imaging Evaluation.
== END 2024-07-05 23:59 | disposition home or self-care (01) ==
LOC: RAD 09:03
PROVIDERS: PCP Internal Medicine; Visit Provider Internal Medicine
DX: M81.0 Age-related osteoporosis without current pathological fracture (principal); Z12.31 Encounter for screening mammogram for malignant neoplasm of breast
CPT/HCPCS: 77063; 77067; 77080

== ENCOUNTER 2024-09-26 09:33 | Outpatient (CLI) | payer MEDICARE, OTHER, SELFPAY ==
--- NOTE | 2024-09-26 09:39 | US_ITS ---
PROCEDURE INFORMATION: Exam: US Left Breast, Complete MG Left Diagnostic Breast Tomosynthesis Exam date and time: 09/26/2024 9:35 AM Age: 83 years old Clinical indication: Callback for additional assessment of glandular asymmetry in the left axillary tail identified on screening mammogram 07/05/24. Clinical history of lymphoma TECHNIQUE: Imaging protocol: Complete ultrasound of all four quadrants of the left breast and the retroareolar regions, including ultrasound of the axilla when performed. Left Diagnostic tomosynthesis and 2D mammography including computer-aided detection (CAD) when performed. Unilateral or bilateral exam. COMPARISON: 07/05/2024, 07/31/2022 FINDINGS: MAMMOGRAPHY: Breast composition: The breast is heterogeneously dense, which may obscure small masses. Breast mammogram findings: In the upper posterior left breast, overlying the pectoralis muscle, there is a 4.0 x 3.1 cm mixed density asymmetry. When carefully assessing tomographic images this appears to reflect a group of prominent lymph nodes which measure up to about 1.3 cm individually and maintain diminutive fatty hilum. This may reflect reactive or inflammatory etiology although this is somewhat concerning given that it is a unilateral finding. Additionally, given the patient's clinical history of lymphoma, treated over recurrent lymphoma must be considered. No mammographically apparent breast mass is present ULTRASOUND: Breast ultrasound findings: Left 4 quadrant and retroareolar breast ultrasound and left axilla ultrasound Several axillary lymph nodes measure up to about 1.6 cm and demonstrate relatively thickened symmetric cortex with diminutive fatty hilum. In conglomerate, these likely reflect the focal asymmetry on mammogram and may be on an inflammatory basis or could reflect recurrent/treated lymphoma Otherwise, only normal glandular structures are present in the regions assessed No suspicious solid or cystic mass is present. No benign-appearing solid or cystic mass is present. No architectural distortion or shadowing is present. IMPRESSION: Left axillary tail mammographic asymmetry appears to reflect a grouping of lymph nodes which demonstrate prominent symmetric cortex with relatively diminutive fatty hilum. While this may be on an inflammatory or reactive basis the patient's clinical history of lymphoma raises concern that this this may reflect recurrent or treated disease especially as a unilateral process. Recommend oncology consultation with possible systemic imaging if clinically required. Alternatively, short-term follow-up diagnostic mammogram/ultrasound could be performed in 1 month to assure resolution if inflammation is suspected Also, please correlate with any possible recent left upper extremity vaccinations which could be responsible for inflammation. If a left upper extremity vaccination has been performed in the last few months, short-term follow-up in 1 month would be adequate to confirm resolution ASSESSMENT: BI-RADS category 3: Probably benign
== END 2024-09-26 23:59 | disposition home or self-care (01) ==
LOC: RAD 09:34
PROVIDERS: PCP Internal Medicine; Visit Provider Internal Medicine
DX: R92.8 Other abnormal and inconclusive findings on diagnostic imaging of breast (principal)
CPT/HCPCS: 76641; 77061; 77065; G0279

== ENCOUNTER 2025-06-05 08:22 | Outpatient (CLI) | payer MEDICARE, OTHER, SELFPAY ==
[2025-06-05 10:12] LABS: 25-OH Vitamin D, Total 81.7 ng/mL (30-100)
[2025-06-05 10:23] LABS: Thyroid Stimulating Hormone 2.43 uIU/mL (0.465-4.68)
[2025-06-05 10:42] LABS: Vitamin B12 835 pg/mL (239-931)
[2025-06-05 11:04] LABS: Folate 17.70 ng/mL
[2025-06-05 12:40] LABS: Magnesium 1.5 mg/dl (1.6-2.3)
== END 2025-06-05 23:59 | disposition home or self-care (01) ==
LOC: LAB 08:25
PROVIDERS: PCP Internal Medicine; Visit Provider Internal Medicine
DX: E55.9 Vitamin D deficiency, unspecified (principal); I10 Essential (primary) hypertension; E78.5 Hyperlipidemia, unspecified; E53.8 Deficiency of other specified B group vitamins
CPT/HCPCS: 36415; 82306; 82607; 82746; 83735; 84443